=== PATIENT | male | born 1955 | race Caucasian/White ===

== ENCOUNTER 2020-09-14 16:07 | Emergency (ER) | payer OTHER, SELFPAY ==
[2020-09-14 16:25] VITALS: BP 160/83; PULSE 89; RESP 18; TEMP 37.2; O2SAT 97; BMI 32.8
--- NOTE | 2020-09-14 16:33 | DI.RAD.S_ITS ---
PROCEDURE: XR ANKLE LT MIN 3V INDICATIONS: twisted L ankle TECHNIQUE: 3 views of the ankle were acquired. COMPARISON: None. FINDINGS: Bones: No fracture identified. Diffuse hindfoot degenerative spurring. Plantar calcaneal spur also noted. Soft tissues: Lateral soft tissue swelling IMPRESSION: Lateral soft tissue swelling. If the patient's pain or other symptoms persist, consider further evaluation with MRI Dictated by: Bill Abad M.D. on 09/14/2020 at 17:05 Approved by: Bill Abad M.D. on 09/14/2020 at 17:06
[2020-09-14 19:55] VITALS: BP 126/84; PULSE 68; RESP 16; TEMP 36.8; O2SAT 96
--- NOTE | 2020-09-14 22:09 | ED.LOWEXIN ---
HPI - Extremity Injury (Lower) General Chief Complaint: Extremity Injury, Lower Stated Complaint: twisted left ankle Time Seen by Provider: 09/14/20 22:08 Source: patient Mode of arrival: Ambulatory Limitations: no limitations History of Present Illness HPI Narrative: Patient injured his left ankle yesterday. [place] Step over log and his ankle twisted. Has been ambulatory since then. Making pain and swelling worsening. Has bruising to the foot from dependent edema. No prior surgery to the ankle or foot. Related Data Allergies Allergy/AdvReac Type Severity Reaction Status Date / Time No Known Drug Allergies Allergy Verified 09/14/20 16:25 Review of Systems Review of Systems Narrative: GENERAL: Denies chills, fatigue, malaise, fever, sweats. MUSCULOSKELETAL: Complains muscle or bony pain SKIN: Denies rash, skin lesions NEUROLOGIC: Denies weakness, numbness ROS Unobtainable: All systems reviewed & are unremarkable except as noted in HPI and below Patient History Social History Smoking Status: Never smoker Smoking Status: Never smoker alcohol intake frequency: a few times a week Substance Use Type: does not use Exam Narrative Exam Narrative: GENERAL: in no distress, not toxic not dyspneic HEAD: Normocephalic. EXTREMITIES: Examination left lower extremity. Foot warm soft opaque strong pedal pulse light touch intact to foot and toes. Able to flex extend at the ankle. There is edema of the foot. Patient states he has been up and walking a lot since injury. Bruising at the bottom portion of the feet. Nontender foot. There is lateral edema and tenderness to the lateral ankle. Able stand and bear weight but does have antalgic gait. BACK: No flank tenderness. NEURO: AOx4. SKIN: Warm and dry PSYCH: Not anxious, is cooperative Initial Vital Signs Initial Vital Signs: Vital Signs Temperature 99 F 09/14/20 16:25 Pulse Rate 89 09/14/20 16:25 Respiratory Rate 18 09/14/20 16:25 Blood Pressure 160/83 H 09/14/20 16:25 Pulse Oximetry 97 09/14/20 16:25 Procedures Orthopedic Splinting/Casting Injury #1: Time of procedure: 22:19 Side: left Lower Extremity Injury Location: ankle Lower Extremity Immobilizer: AirCast Post splinting neuro exam: intact Post splinting vascular exam: intact Placed by: Nursing Course Course Course Narrative: No new issues during course of stay Orders Ordered: Discontinued Medications Hydrocodone Bitart/Acetaminophen (Hydrocodone/Acet 5/325 Tablet) 2 tab PO NOW ONE Stop: 09/14/20 22:11 Last Admin: 09/14/20 22:15 Dose: 2 tab Documented by: MARY LOU Ondansetron HCl (Ondansetron 4 Mg Odt) 4 mg SL NOW ONE Stop: 09/14/20 22:12 Last Admin: 09/14/20 22:15 Dose: 4 mg Documented by: MARY LOU Reevaluation(s) Reevaluation #1: Patient agrees with treatment plan. Understands the long wait we have had today as it has been very busy. He is not upset Time: 22:18 Vital Signs Vital signs: Vital Signs - 8 hr 09/14/20 16:25 09/14/20 19:55 Temperature 99 F 98.2 F Pulse Rate 89 68 Respiratory Rate 18 16 Blood Pressure 160/83 H 126/84 Pulse Oximetry 97 96 MDM - Extremity Injury (Lower) Differential Diagnosis Differential diagnosis: Likely ankle sprain and strain and ankle fracture Imaging Data Extremity x-ray #1: Radiologist's Impression: [address] [address]ZCdo ReportSigned Patient: Jd RayoMR#: [id number]: 8Acct:[id number]/Sex: 65 / MDate of Service: 09/14/20Loc: EDAccession Number: [id number] Procedure: XR ankle LT min 3V Ordering Provider: Martine Ramirez D.O. PROCEDURE: XR ANKLE LT MIN 3V INDICATIONS: twisted L ankle TECHNIQUE: 3 views of the ankle were acquired. COMPARISON: None. FINDINGS: Bones: No fracture identified. Diffuse hindfoot degenerative spurring. Plantar calcaneal spur also noted. Soft tissues: Lateral soft tissue swelling IMPRESSION: Lateral soft tissue swelling. If the patient's pain or other symptoms persist, consider further evaluation with MRI Dictated by: Bill Abad M.D. on 09/14/2020 at 17:05 Approved by: Bill Abad M.D. on 09/14/2020 at 17:06 [facility] Narrative Medical decision making narrative: Appropriate discharge home. Exam and imaging reassuring. Patient foot and leg neurovascularly intact. Return precautions reviewed with him. He agrees with treatment plan and follow-up Discharge Plan Departure Patient Disposition: Home Clinical Impression: Ankle sprain and strain Instructions: DI for Ankle Sprain Activity Restrictions/Additional Instructions: No driving or operating machinery tonight. Call provided orthopedic office tomorrow for office recheck in a week. Use splint and crutches for walking. Use ibuprofen or Tylenol for pain. Ice and elevate your ankle 20 minutes at a time as needed for pain and swelling. Return if worse if any questions or concerns Referrals: Margarito Spence DO [Primary Care Provider] - Ivy Thorpe MD [Physician] -
[2020-09-14] MEDS: HYDROCODONE/ACET 5/325 TABLET 2 TAB PO (22:15)
[2020-09-14] MEDS: ONDANSETRON 4 MG ODT SL (22:15)
== END 2020-09-14 22:24 | disposition home or self-care (01) ==
PROVIDERS: Emergency Provider Emergency Medicine; PCP Student in an Organized Health Care Education/Training Program
DX: S93.402A Sprain of unspecified ligament of left ankle, initial encounter (principal); S96.912A Strain of unspecified muscle and tendon at ankle and foot level, left foot, initial encounter; X50.1XXA Overexertion from prolonged static or awkward postures, initial encounter
CPT/HCPCS: 29540; 73610; 99283; 99284

== ENCOUNTER 2021-06-25 20:16 | Emergency (ER) | payer OTHER, SELFPAY ==
[2021-06-25 20:26] VITALS: BP 186/91; PULSE 104; RESP 18; TEMP 36.7; O2SAT 96; BMI 32.8
--- NOTE | 2021-06-25 20:33 | DI.US.S_ITS ---
PROCEDURE: US SCROTUM INDICATIONS: L testicular pain after trauma TECHNIQUE: Real-time scanning was performed of the scrotum and testicles, with image documentation. Color and pulse Doppler interrogation was performed of both testicles. COMPARISON: None. FINDINGS: Right: Testicle measures 3.5 x 2.1 x 2.9 cm and appears homogenous in echotexture. Epididymis appears normal in overall size and morphology. There is a minimal hydrocele. No varicoceles. Overlying scrotal skin is normal in thickness. Left: Testicle measures 3.6 x 2.7 x 2.2 cm and appears homogeneous in echotexture. Epididymis is mildly enlarged and heterogeneously hypoechoic in appearance. No associated increased vascularity on color Doppler interrogation. Within the epididymal tail, there is an oval heterogeneous hypoechoic structure measuring up to 1 x 1 x 1.3 cm. No associated internal vascularity internal Doppler interrogation. There is a small hydrocele with internal debris. No varicoceles. Overlying scrotal skin is normal in thickness. Doppler: Color and pulse Doppler demonstrate normal and symmetric arterial flow in both testicles. Patent venous flow also demonstrated bilaterally. IMPRESSION: 1. Small left hydrocele with internal debris which is nonspecific but may reflect blood product. 2. Mild enlargement and heterogeneously hypoechoic appearance of the left epididymis. The findings is nonspecific and may reflect sequelae of trauma or infection. 3. Oval hypoechoic structure in the left epididymal tail is also nonspecific but in the context of trauma may reflect a hematoma. Recommend clinical follow-up and a short-term follow-up repeat ultrasound if indicated to demonstrate resolution. Dictated by: Hira Arnold M.D. on 06/25/2021 at 22:43 Approved by: Hira Arnold M.D. on 06/25/2021 at 22:49
[2021-06-25 22:20] LABS: Bacteria Urine None Seen; Culture Indicated Urine Specimen Cultured; RBC Urine 0-1/HPF (0-5/HPF); WBC Urine 1-5/HPF (0-5/HPF)
--- NOTE | 2021-06-25 22:56 | ED_ITS ---
HPI - General Adult General Chief complaint: Urogenital-Male Stated complaint: Testicular pain and swelling Time Seen by Provider: 06/25/21 20:33 Source: patient Mode of arrival: Ambulatory History of Present Illness HPI narrative: 65-year-old male here for evaluation of left-sided testicular pain and swelling. Patient states that yesterday when he was riding on his lawnmower he started noticing some discomfort in his left testicle. He states that he felt down and felt a lump in this area. He did have some discomfort in his lower back that is resolved. He also had some dark urine this morning. He reports that 3 weeks ago he did sustain a trauma where he was hit in the groin by a rubber ball. He has had issues with prostate in the past. Has seen urology in the past because of this. Currently he is not having any problems urinating. No fevers. Related Data Allergies Allergy/AdvReac Type Severity Reaction Status Date / Time No Known Drug Allergies Allergy Verified 06/25/21 20:31 Review of Systems Constitutional Constitutional: Reports system reviewed and no additional complaints, except as documented Gastrointestinal Gastrointestinal: Reports system reviewed and no additional complaints, except as documented Genitourinary Genitourinary: Reports system reviewed and no additional complaints, except as documented and Reports as per HPI Musculoskeletal Musculoskeletal: Reports system reviewed and no additional complaints, except as documented Integumentary/Breasts Skin/Breast: Reports system reviewed and no additional complaints, except as documented and Reports as per HPI Hematologic/Lymphatic On Anticoagulants: No Patient History Medical History BPH (benign prostatic hyperplasia) Social History Smoking Status: Never smoker Smoking Status: Never smoker alcohol intake frequency: 0-2 drinks per day Alcohol type: beer Substance Use Type: does not use Exam Initial Vital Signs Initial Vital Signs: Vital Signs Temperature 98.1 F 06/25/21 20:26 Pulse Rate 104 H 06/25/21 20:26 Respiratory Rate 18 06/25/21 20:26 Blood Pressure 186/91 H 06/25/21 20:26 Pulse Oximetry 96 06/25/21 20:26 HENMT Head: normal to inspection and normocephalic Resp Effort & Inspection: normal respiratory effort Cardio Rate: regular rate GI Inspection: normal to inspection and non-distended Palpation: soft, No firm and No tender Other: Circumcised. Normal external genitalia. Right testicle is unremarkable. Left testicle is unremarkable. Next to the left testicle there is a firm nodule located within the scrotal sac. Does feel to be separate from the testicle. Minimally tender. Does have some tenderness along the epididymis on the left. No hernia felt. No skin changes over the scrotum noted. Skin General: no rashes or lesions noted Extrem General: normal to inspection and capillary refill normal Course Orders Ordered: ED Orders 06/25/21 20:33 US scrotum Stat 06/25/21 21:53 Urine Culture Stat Urine Microscopic Stat Vital Signs Vital signs: Vital Signs - 8 hr 06/25/21 20:26 06/25/21 23:09 Temperature 98.1 F Pulse Rate 104 H 87 Respiratory Rate 18 16 Blood Pressure 186/91 H 136/82 Pulse Oximetry 96 96 Medical Decision Making Lab Data Labs: Lab Results 06/25/21 Range/Units 21:53 Urine RBC 0-1/hpf (0-5/HPF) Urine WBC 1-5/hpf (0-5/HPF) Urine Bacteria None seen (None) Ur Culture Indicated? Specimen cultured Urine Dip Bedside Urine Glucose Negative Bedside Urine Bilirubin - Negative Bedside Urine Ketone - Negative Urine Specific [place] 1.030 Bedside Urine Occult Blood +/- Bedside Urine pH 5.5 Bedside Urine Protein - Negative Bedside Urine Urobilinogen - Negative Bedside Urine Nitrite - Negative Bedside Urine Leukocytes + 70 Esterase Point of care testing: Urine Dip Bedside Urine Glucose Negative Bedside Urine Bilirubin - Negative Bedside Urine Ketone - Negative Urine Specific [place] 1.030 Bedside Urine Occult Blood +/- Bedside Urine pH 5.5 Bedside Urine Protein - Negative Bedside Urine Urobilinogen - Negative Bedside Urine Nitrite - Negative Bedside Urine Leukocytes + 70 Esterase Imaging Data Scrotal ultrasound: Radiologist's Impression: [address] [address] Ultrasound Report Signed Patient: Jd Rayo MR#: [id number] : 1955 Acct:[id number] Age/Sex: 65 / M Date of Service: 06/25/21 Loc: ED Accession Number: [id number] ?? Procedure: US scrotum Ordering Provider: Gold Gaona D.O. PROCEDURE:? US SCROTUM ? INDICATIONS:? L testicular pain after trauma ? TECHNIQUE:? Real-time scanning was performed of the scrotum and testicles, with image documentation.? Color and pulse Doppler interrogation was performed of both testicles.? ? COMPARISON:? None. ? FINDINGS:? ? Right:? Testicle measures 3.5 x 2.1 x 2.9 cm and appears homogenous in echotexture.? Epididymis appears normal in overall size and morphology.? There is a minimal hydrocele.? No varicoceles.? Overlying scrotal skin is normal in thickness.? ? Left:? Testicle measures 3.6 x 2.7 x 2.2 cm and appears homogeneous in echotexture.? Epididymis is mildly enlarged and heterogeneously hypoechoic in appearance.? No associated increased vascularity on color Doppler interrogation.? Within the epididymal tail, there is an oval heterogeneous hypoechoic structure measuring up to 1 x 1 x 1.3 cm. ?No associated internal vascularity internal Doppler interrogation.? There is a small hydrocele with internal debris.? No varicoceles.? Overlying scrotal skin is normal in thickness.? ? Doppler:? Color and pulse Doppler demonstrate normal and symmetric arterial flow in both testicles.? Patent venous flow also demonstrated bilaterally.? ? IMPRESSION:? ? 1. Small left hydrocele with internal debris which is nonspecific but may reflect blood product. ? 2. Mild enlargement and heterogeneously hypoechoic appearance of the left epididymis.? The findings is nonspecific and may reflect sequelae of trauma or infection. ? 3. Oval hypoechoic structure in the left epididymal tail is also nonspecific but in the context of trauma may reflect a hematoma.? Recommend clinical follow-up and a short-term follow-up repeat ultrasound if indicated to demonstrate resolution.? ? ? Dictated by: Hira Arnold M.D. on 06/25/2021 at 22:43 ? ? Approved by: Hira Arnold M.D. on 06/25/2021 at 22:4 MDM Narrative Medical decision making narrative: Patient does have hematuria however no other signs of infection. Is not having any dysuria. I did discuss hematuria with him. We discussed the importance of following up with either Urology or his primary doctor for this to determine re solution. Ultrasound shows at the testicles are unremarkable. He does have findings that in the right setting would be consistent with a hematoma and given the fact that he did sustain an injury 3 weeks ago this would not be unreasonable. We did discuss the findings. He was informed that he should have a repeat evaluation and potential repeat ultrasound to determine resolution. He expressed understanding and agreement. Discharge Plan Departure Patient Disposition: Home Clinical Impression: Hydrocele, Hematuria Instructions: DI for Hematuria, Hydrocele Activity Restrictions/Additional Instructions: I do recommend that you continue to take all of your medications as directed. Recommend you contact the urologist at the number provided below for a follow- up. Return to the emergency department for any new or worsening symptoms. Referrals: Margarito Spence DO [Primary Care Provider] - Sriram Huggins MD [Physician] -
[2021-06-25 23:09] VITALS: BP 136/82; PULSE 87; RESP 16; O2SAT 96
== END 2021-06-25 23:10 | disposition home or self-care (01) ==
PROVIDERS: Emergency Provider Emergency Medicine; PCP Student in an Organized Health Care Education/Training Program
DX: N43.3 Hydrocele, unspecified (principal); R31.9 Hematuria, unspecified
CPT/HCPCS: 76870; 81003; 81015; 87086; 99283

== ENCOUNTER → 2021-07-05 09:35 | Outpatient (CLI) | payer OTHER, SELFPAY ==
[2021-07-05 12:42] LABS: COVID19 -Nasal RAPID Negative (Negative)
== END ==
PROVIDERS: PCP Student in an Organized Health Care Education/Training Program; Visit Provider Surgery
DX: Z20.822 Contact with and (suspected) exposure to COVID-19 (principal); Z01.812 Encounter for preprocedural laboratory examination
CPT/HCPCS: 87635; C9803

== ENCOUNTER 2021-07-06 12:31 | Day surgery (SDC) | payer OTHER, SELFPAY ==
--- NOTE | 2021-07-06 | PATH_ITS ---
[facility] Accession Number: [id number] . 01 Material submitted: . colon - ASCENDING COLON POLYP . 01 Diagnosis: Ascending Colon, Polyp, Biopsy: Tubular adenoma in 1 of 4 fragments. Sessile serrated adenoma in 2 fragments. [facility] 07/11/2021 1440 Local . 01 Electronically signed: . Dayana Wilson MD, Pathologist NPI- [id number] . 01 Gross description: . ASCENDING COLON POLYP: Received in formalin are 3 fragment(s) of rios, soft tissue measuring 0.5 x 0.3 x 0.1 cm to 0.1 x 0.1 x 0.1 cm submitted entirely in 1 cassette(s) /CPE 07/07/2021 0537 Local . 01 Pathologist provided ICD-10: D12.2 . 01 CPT . 943747 Specimen Comment: A courtesy copy of this report has been sent to [phone] Performed at: 01 [facility] Located within [facility] [address] [place] [address] [address], [place], [place] [id number] MD Hira Willingham MD Phone: [phone]
[2021-07-06 13:28] VITALS: BP 109/70; PULSE 94; RESP 16; TEMP 37.1; O2SAT 96; BMI 34.0
[2021-07-06] MEDS: LACTATED RINGERS 1,000 ML 42 ML IV (13:41)
--- NOTE | 2021-07-06 16:08 | PM.HP.1 ---
History of Present Illness History of Present Illness Date Patient Seen: 07/06/21 Time Patient Seen: 16:08 Chief complaint: DX COLONOSCOPY Narrative: Jamie is a 65-year-old man who had a recent positive Cologuard test. He believes he has a fissure which could have cause for the positive result. He had a colonoscopy about 13 years ago. Patient History Medical History BPH (benign prostatic hyperplasia) Family & Social History Social History: household members spouse Tobacco & Substance use: Tobacco type cigarettes,cigars,smokeless tobacco Smoking Status Former smoker alcohol intake current alcohol intake frequency 0-2 drinks per day Substance Use Type does not use Meds Home Medications and Allergies Home Medications Medication Instructions Recorded Confirmed Type sodium,potassium,mag sulfates 17.5 See Rx Instructions PO .COMPLEX 07/03/21 Rx gram-3.13 gram-1.6 gram oral soln #354 ml (Suprep Bowel Prep Kit) albuterol sulfate 90 mcg/actuation 1 puff INHALATION 07/06/21 History aerosol inhaler (ProAir HFA) aspirin 81 mg tablet,delayed 81 mg PO DAILY 07/06/21 07/06/21 History release lisinopril 10 mg tablet 10 mg PO DAILY 07/06/21 07/06/21 History tamsulosin 0.4 mg capsule 0.4 mg PO DAILY 07/06/21 07/06/21 History Allergies Allergy/AdvReac Type Severity Reaction Status Date / Time No Known Drug Allergies Allergy Verified 06/25/21 20:31 Exam Vital Signs (past 8 hours): - 07/06/21 13:28 Temperature 98.7 F Pulse Rate 94 H Respiratory Rate 16 Blood Pressure 109/70 Pulse Oximetry 96 Oxygen Delivery Method Room Air Const General: No acute distress Resp Effort & Inspection: normal respiratory effort Assessment & Plan Assessment and plan (1) Positive colorectal cancer screening using Cologuard test: Status: Acute Plan 65-year-old man who had a positive Cologuard test recently. We will perform a colonoscopy to make sure there is nothing malignant in the colon. He understands the risks and would like to proceed. COVID-19 COVID-19 status: Negative Result date/Date tested (Pos, Neg/Pending): 07/05/21 Time Spent With Patient Critical Care time: I spent a total of [] minutes of critical care time on this patient's care today; this time is exclusive of procedural time.
[2021-07-06] MEDS: fentaNYL 250 MCG/5 ML INJ 175 MCG IV (16:30)
[2021-07-06] MEDS: MIDAZOLAM 5 MG/5 ML VIAL IV (16:35)
--- NOTE | 2021-07-06 16:40 | P.OP.COLON_ITS ---
Operative Date/Time/Diagnoses Date of procedure: 07/06/21 Time of procedure: 16:40 Pre-op diagnosis: Positive Cologuard test Post-op diagnosis: same Procedure & Clinicians Study performed: Colonoscopy Procedure Notes Procedure in detail: Surgeon: Robin Carey MD Procedure: The patient was brought to the endoscopy suite, placed in left lat eral decubitus position. The patient was connected to monitoring devices. A time-out was performed. Sedation was administered. Once the patient was adequately sedated, a digital rectal exam was performed and was normal. The scope was then inserted and advanced to the cecum where the appendiceal orifice was identified and photographed. The scope was then slowly withdrawn over greater than 6 minutes. Mucosa was thoroughly inspected. There were 2 polyps, each about 5 mm, in the ascending colon removed with cold forceps using the Jumbo forceps. There was moderate diverticulosis of the sigmoid colon. The scope was retroflexed in the rectum. There was some mild internal hemorrhoids. The scope was straightened and removed. The patient was awakened and brought to recovery. Versed: 5 mg Fentanyl: 175 mcg EBL: 5 mL Findings: 2 small polyps each roughly 5 mm in the ascending colon, sigmoid diverticulosis Scope withdrawal time: 10 Sedation minutes: 19 Post-procedure Recommendations: Will call with biopsy results Disposition: PACU
[2021-07-06 16:43] VITALS: BP 121/83; PULSE 94; RESP 15; TEMP 37.2; O2SAT 97
[2021-07-06 16:53] VITALS: BP 124/79; PULSE 85; RESP 18; O2SAT 97
[2021-07-06 16:58] VITALS: BP 137/88; PULSE 86; RESP 23; O2SAT 96
[2021-07-06 17:07] VITALS: BP 132/92; PULSE 77; RESP 15; TEMP 37.2; O2SAT 98
== END 2021-07-06 17:15 | disposition home or self-care (01) ==
PROVIDERS: PCP Student in an Organized Health Care Education/Training Program; Referring Provider Surgery; Visit Provider Surgery
PROC: 0DJD8ZZ Inspection of Lower Intestinal Tract, Via Natural or Artificial Opening Endoscopic (ICD-10-PCS; CPT 45378; principal; 2021-07-06 14:15)
DX: R19.5 Other fecal abnormalities (principal); K57.30 Diverticulosis of large intestine without perforation or abscess without bleeding; K64.8 Other hemorrhoids; D12.2 Benign neoplasm of ascending colon
CPT/HCPCS: 45380; 99152; J2250; J3010

== ENCOUNTER 2021-12-08 10:50 | Emergency (ER) | payer OTHER, SELFPAY ==
[2021-12-08 11:17] VITALS: BP 119/85; PULSE 114; RESP 20; TEMP 36.1; O2SAT 96; BMI 34.4
[2021-12-08 12:09] LABS: Appearance Urine UA CLEAR; Bilirubin Urine UA NEGATIVE (NEGATIVE); Color Urine UA YELLOW; Glucose Urine UA NEGATIVE (Negative); Ketones Urine UA NEGATIVE (NEGATIVE); Leukocyte Esterase Urine UA 2+ (NEGATIVE); Nitrite Urine UA POSITIVE (Negative); Occult Blood Urine UA 3+ (Negative); Protein Urine UA 1+ (Negative); Urobilinogen Urine UA 0.2 E.U./dL (0.2)
[2021-12-08 12:18] LABS: Amorphous Sediment Urine 2+; Bacteria Urine Moderate (10-30); Culture Indicated Urine Specimen Cultured; RBC Urine 5-10/HPF (0-5/HPF); WBC Urine 10-30/HPF (0-5/HPF)
--- NOTE | 2021-12-08 12:28 | ED_ITS ---
HPI - Male Genitourinary <Zeke Flores PA-C - Last Filed: 12/08/21 13:02> General Chief complaint: Urogenital-Male Stated complaint: peeing blood Time Seen by Provider: 12/08/21 12:15 Source: patient Mode of arrival: Ambulatory History of Present Illness HPI Narrative: Patient is a 66-year-old male who presents to the emergency room today with complaint of blood in his urine that has resolved at this point. States that last night he noticed a little tingling when he urinated with some mild associated urgency.. And states that progressed this morning to where he has some blood in his urine or 2 times when he urinated. Stated that that has ceased at this point in time. Denies abdominal pain shortness of breath nausea vomiting. Admits to a history of bursitis and history of prostate enlargement that is being treated by Dr. Meeks. Denies any allergy to medications and only takes lisinopril and Flomax at this time. Denies any other concerns at this time. Related Data Home Medications Medication Instructions Recorded Confirmed albuterol sulfate 90 mcg/actuation 1 puff inhalation 07/06/21 aerosol inhaler (ProAir HFA) aspirin 81 mg tablet,delayed 81 mg PO DAILY 07/06/21 07/06/21 release lisinopril 10 mg tablet 10 mg PO DAILY 07/06/21 07/06/21 tamsulosin 0.4 mg capsule 0.4 mg PO DAILY 07/06/21 07/06/21 Previous Rx's Medication Instructions Recorded sodium,potassium,mag sulfates 17.5 See Rx Instructions PO .COMPLEX 07/03/21 gram-3.13 gram-1.6 gram oral soln #354 mL (Suprep Bowel Prep Kit) cephalexin 500 mg capsule 500 mg PO BID #14 caps 12/08/21 cephalexin 500 mg capsule 500 mg PO BID UTI #7 caps 12/08/21 Allergies Allergy/AdvReac Type Severity Reaction Status Date / Time No Known Drug Allergies Allergy Verified 06/25/21 20:31 Review of Systems <Zeke Flores PA-C - Last Filed: 12/08/21 13:02> Review of Systems Narrative: R.O.S.: General: No fever, chills or fatigue. Cardiovascular: No chest pain or palpitations Respiratory: No S.O.B. HEENT: No congestion, ear pain, rhinorrhea, sore throat or tinnitus Gastrointestinal: No nausea or vomiting : Blood in urine and urinary urgency. Skin: No rash or associated abnormalities Musculoskeletal: No pain in muscles or joints, no limitation of range of motion, no paresthesia or numbness. ?? Neurological: Awake, alert and in not apparent distress. No Headaches, changes in vision or other related neurological concerns. Patient History <Zeke Flores PA-C - Last Filed: 12/08/21 13:02> Medical History BPH (benign prostatic hyperplasia) Social History household members: spouse Smoking Status: Former smoker alcohol intake: current Smoking Status: Former smoker alcohol intake frequency: 0-2 drinks per day Alcohol type: beer Substance Use Type: does not use Exam <Zeke Flores PA-C - Last Filed: 12/08/21 13:02> Narrative Exam Narrative: Physical Exam: ? General: normal appearance, well developed. Not in acute distress. ? Head: Normocephalic, no lesions. Chest: Lungs CTAB, no rales, rhonchi or wheezes. ?? Heart: RRR, no murmurs, rubs or gallops. Eyes: PERRLA, EOM's full, conjunctivae clear. ? Neuro: A&O x3 in NAD? Extremities: Warm, well perfused, FROM, no deformities, no edema. ?? Skin: Normal, no rashes, no lesions noted. ?? PSYCHIATRIC: The mood is good, no blunted affect. Speech is clear. Thought process is linear, thought content is appropriate. The voice is without significant inflection. Gastrointestinal: Soft; NT; ND; Pos BS with Neg. rebound tenderness. No scars or major deformities noted on Visual Inspection. Initial Vital Signs Initial Vital Signs: Vital Signs Temperature 97.0 F L 12/08/21 11:17 Pulse Rate 114 H 12/08/21 11:17 Respiratory Rate 20 12/08/21 11:17 Blood Pressure 119/85 12/08/21 11:17 Pulse Oximetry 96 12/08/21 11:17 Oxygen Delivery Method 12/08/21 11:17 <Martine Ramirez DO - Last Filed: 12/13/21 07:00> Initial Vital Signs Initial Vital Signs: Vital Signs Temperature 97.0 F L 12/08/21 11:17 Pulse Rate 114 H 12/08/21 11:17 Respiratory Rate 20 12/08/21 11:17 Blood Pressure 119/85 12/08/21 11:17 Pulse Oximetry 96 12/08/21 11:17 Oxygen Delivery Method 12/08/21 11:17 Course <Zeke Flores PA-C - Last Filed: 12/08/21 13:02> Orders Ordered: ED Orders 12/08/21 11:30 UA Complete [Urinalysis and Microscopic] Stat Urine Culture Stat Vital Signs Vital signs: Vital Signs - 8 hr 12/08/21 11:17 Temperature 97.0 F L Pulse Rate 114 H Respiratory Rate 20 Blood Pressure 119/85 Pulse Oximetry 96 Oxygen Delivery Method Room Air <Martine Ramirez DO - Last Filed: 12/13/21 07:00> Orders Ordered: ED Orders 12/08/21 11:30 UA Complete [Urinalysis and Microscopic] Stat Urine Culture Stat Vital Signs Vital signs: Vital Signs - 8 hr 12/08/21 11:17 Temperature 97.0 F L Pulse Rate 114 H Respiratory Rate 20 Blood Pressure 119/85 Pulse Oximetry 96 Oxygen Delivery Method Room Air MDM - Male Genitourinary <KRIS Veliz Last Filed: 12/08/21 13:02> Lab Data Labs: Lab Results 12/08/21 Range/Units 11:30 Urine Color Yellow Urine Appearance Clear Urine pH 5.0 (4.5-8.0) Ur Specific [place] 1.010 (1.000-1.035) Urine Protein 1+ H (Negative) Urine Glucose (UA) Negative (Negative) g/dL Urine Ketones Negative (NEGATIVE) Urine Occult Blood 3+ H (Negative) Urine Nitrate Positive H (Negative) Urine Bilirubin Negative (NEGATIVE) Urine Urobilinogen 0.2 (0.2) E.U./dL Ur Leukocyte Esterase 2+ H (NEGATIVE) Urine RBC 5-10/hpf H (0-5/HPF) Urine WBC 10-30/hpf H (0-5/HPF) Amorphous Sediment 2+ Urine Bacteria Moderate (10-30) H (None) Ur Culture Indicated? Specimen cultured MDM Narrative Medical decision making narrative: Patient presents to the emergency room with complaint of hematuria that has resolved at this point with associated urinary discomfort with peeing and hesi tancy. Labs were positive for urinary tract infection. Patient denies any respiratory or urgent emergent concerns at this time. So provider has elected to treat the patient's urinary tract infection and have the patient follow-up should any urgent emergent concerns arise. Patient agrees with this plan <Martine Ramirez, DO - Last Filed: 12/13/21 07:00> Lab Data Labs: Lab Results 12/08/21 Range/Units 11:30 Urine Color Yellow Urine Appearance Clear Urine pH 5.0 (4.5-8.0) Ur Specific [place] 1.010 (1.000-1.035) Urine Protein 1+ H (Negative) Urine Glucose (UA) Negative (Negative) g/dL Urine Ketones Negative (NEGATIVE) Urine Occult Blood 3+ H (Negative) Urine Nitrate Positive H (Negative) Urine Bilirubin Negative (NEGATIVE) Urine Urobilinogen 0.2 (0.2) E.U./dL Ur Leukocyte Esterase 2+ H (NEGATIVE) Urine RBC 5-10/hpf H (0-5/HPF) Urine WBC 10-30/hpf H (0-5/HPF) Amorphous Sediment 2+ Urine Bacteria Moderate (10-30) H (None) Ur Culture Indicated? Specimen cultured Discharge Plan Departure Patient Disposition: Home Clinical Impression: Urinary tract infection Instructions: DI for Urinary Tract Infection (UTI) Activity Restrictions/Additional Instructions: *You have been diagnosed with urinary tract infection. I have ordered antibiotics for urinary tract infection. Please take the antibiotics as ordered and follow-up with the emergency room if any emergent concerns arise. [ ] *What to do: *Please continue to take your regular medications as directed. [ ] New medication prescriptions sent to your pharmacy: [ ] [x] New medication written as a paper prescription [ ] No new medications given *Please follow up with your primary care provider in 2-3 days, call for an appointment. Let them know you were seen in the Emergency Department and that we ask that you be seen in follow up. We will electronically transmit a record of today's note if your PCP is in our system *If you do not have a primary care provider please contact the [facility] Resource line at [phone]. They will ask some questions about your medical history and help get you set up with a doctor in the community. *Return to Emergency Department if you should have any new, worsening or concerning symptoms, such as [fever greater than 101 F, shaking chills, worsening pain, persistent vomiting or other bothersome symptoms] Prescriptions: New cephalexin 500 mg capsule 500 mg PO BID Qty: 7 0RF cephalexin 500 mg capsule 500 mg PO BID Qty: 14 0RF No Action Suprep Bowel Prep Kit 17.5-3.13-1.6 gram recon soln See Rx Instructions PO .COMPLEX Qty: 354 0RF Rx Instructions: Take as directed by Physician aspirin 81 mg tablet,delayed release (DR/EC) 81 mg PO DAILY tamsulosin 0.4 mg capsule 0.4 mg PO DAILY lisinopril 10 mg tablet 10 mg PO DAILY albuterol sulfate [ProAir HFA] 90 mcg/actuation HFA aerosol inhaler 1 puff INHALATION Referrals: Provider,Mo HERNANDES [Primary Care Provider] - Visit Report Forms: Patient Portal/API <Martine Ramirez DO - Last Filed: 12/13/21 07:00> Cosign ED Attending Bailey Attestation: I was immediately available in the department for consultation. Documentation has been reviewed. I agree with assessment and plan.
[2021-12-08 13:28] VITALS: PULSE 89; RESP 20
== END 2021-12-08 13:28 | disposition home or self-care (01) ==
PROVIDERS: Emergency Medicine; Emergency Provider Physician Assistant
DX: N39.0 Urinary tract infection, site not specified (principal)
CPT/HCPCS: 81001; 87077; 87086; 87186; 99281; 99282